=== PATIENT | male | born 1960 | race Caucasian/White ===

== ENCOUNTER 2020-11-07 13:02 | Emergency (ER) | payer BC ==
--- OUTSIDE RECORDS SUMMARY | 2020-11-07 13:09 | XMS REPORT | Continuity of Care Document ---
:1960 Author Organization [facility] t Address Formerly [facility] [employer] [address] Miller [address] [place] [address] Care Team Providers Name Role Phone NICK Attending Clinician Unavailable Mauricio VO Attending Clinician Vignesh MANCERA Attending Clinician Unavailable Tushar VO Attending Clinician Payers Payer Name Policy Type Policy Number Effective Date Expiration Date S keron BCBSTX PPO [id number] 2019 00:00:00 Problems This patient has no known problems. Allergies, Adverse Reactions, Alerts Allergy Allergy Status Severity Reaction(s) Onset Inactive Treating Comm ents Source Name Type Date Date Clinician [facility] te 3-30 Clear 00:00: Patel 00 [facility] oxcarbaz DA Active [facility] epine 3-30 Clear 00:00: Patel 00 [facility] topirama DA Active [facility] te 3- Clear 00:00: Patel 00 [facility] topirama DA Active [facility] te 7- Clear 00:00: Patel 00 [facility] oxcarbaz DA Active [facility] epine 7- Clear 00:00: Patel 00 [facility] Medications This patient has no known medications. Procedures This patient has no known procedures. Encounters Start End Encounter Admission Attending Care Care Encounter Source Date/Time Date/Time Type Type Clinicians Facility Department ID 2020-10-19 Outpatient [facility] [place] [id number] [place] 11:08:00 NO LEONA Heal 2020-10-01 Outpatient [facility] [place] [id number] [place] 17:04:35 NO, LEONA Heal 2020-09-11 Outpatient [facility] [place] [id number] [place] 10:44:32 NO LEONA Heal 2020-10-20 2020-10-20 Outpatient [facility] 7502 [facility] 13:25:00 13:25:00 2020-10-01 2020-10-01 Office [facility] 6410 [id number] 13:49:53 14:49:[address] 350.1.13.58 9.2.7.2.686 [id number] 2020-09-28 2020-09-28 [facility] [id number] 2313 16:29:27 23:59:00 Encounter Raúl Burgos 350.1.13.10 Interior 4.2.7.2.686 [place] [id number] 2020-09-24 2020-09-24 Telephone Vignesh [facility] 6410 [id number] [id number] 00:00:00 00:00:[address] 350.1.13.58 9.2.7.2.686 [id number] 2020-09-10 2020-09-10 Telephone Tushar [facility] 6410 [id number] [id number] 00:00:00 00:00:[address] 350.1.13.58 9.2.7.2.686 [id number] 2020-05-28 2020-05-28 [facility] [id number] [id number] 08:37:56 23:59:00 Encounter Raúl Burgos 350.1.13.10 Interior 4.2.7.2.686 [place] [id number] 2020-05-28 2020-05-28 [facility] 1.2.603.728 [id number] 08:37:03 23:59:00 Encounter Raúl Burgos 350.1.13.10 Jesica 4.2.7.2.686 [place] [id number] Results Test Description Test Time Test Comments Results Result Comments Source SURGICAL PATH SPECIMENS 2020-07-22 14:32:00 Test Item Value Reference Range Interpretation Comme nts SURGICAL RUN DATE: PATH 07/22/20 [place] - LAB PAGE 1 RUN TIME: 1433 SPECIMENS Specimen Inquiry RUN USER: INTERFACE (test code = SURG) PATIENT: ULISSES CH LOC: [facility] U #: [id number] AGE/SX: 59/ M ROOM: [facility] RE07/09/20REG DR: Giovany Rizo : 60 BED: 1 DIS: 07/10/20 STATUS: DIS IN TLOC: SPEC #: [id number] RECD: STATUS: IMELDA WAGNER #: [id number] SANJAY: 07/10/[address]: Giovany Rizo MD ENTERED: 07/21/20 SP TYPE: SURG SPEC OTHR DR: Deven Soto MD, Alfred S M D Thomas, Antony B MDORDERED: GROSS AND MICRO CODES: [id number] - LUNG, NOS COPIES TO : Giovany Rizo MD [address] [id number] Deven Cage MD [address] [place], [place] [address] Raúl Otto MD [address] [place], [place] [address] Víctor Burgos MD [address] [place], [place] [address] [place] [address] PROCEDURES: GROSS AND MICRO (Incomplete) TISSUES: 1. LUNG, NOS - Lung, right upper lobe, bx. 2. LUNG, NOS - Lung, r ight middle lobe, bx. 3. LUNG, NOS - Lung, right lower lobe, bx. 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 CONTINUED ON NEXT PAGE RUN DATE: 07/22/20 [facility] PAGE 2 RUN TIME: 1433 Specimen Inquiry RUN USER: INTERFACE SPEC #: [id number] PATIENT: ULISSES CH #[id number] (Continued) GROSS AND MICROSCOPIC GROSS EXAMINATION: Received in formalin labeled right upper lobe is a 3 x 1.5 cm wedge excision of lung, the pleural surface shows some white-blackmon nodularity at the edge of the pleural surface. Subm itted (A)-(B). Received in formalin labeled right middle lobe is a 3 x 1.1 cm wedge excision of lung tissue submitted (C). Received in formalin labeled right lower lobe is a 2.1 x 1.3 x 0.8 cm wedge excision of lung tissu e submitted (D). MICROSCOPIC EXAMINATION: Sections of the right lung biopsies reveal lung tissue with variable areas of fibrosis and interstitial chronic inflammation. There is black anthracotic pigment present. The alveoli shows emphysematous changes. The case is sent to [facility] via [employer] for evaluation. The internet sales consultant notes follow: "The upper lobe biopsy shows predominantly an airway-cent ered inflammatory pathology with marked peribronchiolar metaplasia, with airway-centered fibro sis. In some areas, there is architectural remodeling of this fibrosis with mucous pooling. In tate tion, there is mild to moderate chronic lymphocytic inflammation present within the fibrotic areas including small lymphoid aggregates and involving the interstitium. A rare multinucleated gi ant cell is identified in the upper lobe. The lower lobe biopsy is relatively unremarkable with the exception of focal chronic bronchiolitis and associated granulomatous inflammation. No birefringent material is seen with polarized light in any of the specimens. Overall, this pat tern of lung pathology is difficult to definitively classify. The predominant air way-centered distribution of the fibroinflammatory changes, the rare foci of giant cells and a gr anulomas and the chronic interstitial inflammation favors a chronic hypersensitivity pne umonitis (CHP). The distribution of disease with apparent sparing of the lower lobe in these biopsies would favor a CHP as well, but requires correlation with the radiologic findings. As yo u know, CHP usually arises from environmental exposures and though no foreign particles were seen, examination of the patient's environmental and occupational exposures is needed. Dr. Lion abel, Thoracic Pathology, has also reviewed this case and concurs with the interpretation of chronic fi brosis interstitial pneumonitis, favor CHP. See outside reports. POST-OP DIAGNOSIS Interstitial lung disease PRE-OP DIAGNOSIS In terstitial lung disease CONTINUED ON NEXT PAGE RUN DATE: 07/22/20 [place] [facility] PAGE 3 RUN TIME: 1433 Specimen Inquiry RUN USER: INTERFACE SPEC #: [id number] PATIENT: ULISSES CH #[id number] (Continued) Signed SIGNATURE ON Joe Schrader Montez DO 07/22/20 1432 END OF REPORT - XR CHEST 1 [id number] 11:39:00 [facility] : 1960 Sex: M FAX: Deven Danielle [phone] Brunson: VIRI St: REG Name: ULISSES CH [facility] : 1960 Age/S: 59/M [address] [place] [address] Bl Unit #: [id number] Loc: [place] [address] Phys: Deven Soto MD Acct: [id number] Dis Date: Status: REG CLI PHONE #: [phone] Exam Date: 07/22/2020 1039 FAX #: [phone] Reason: G89.12, ACUTE POST THRACOTOMY PAIN. J84.9, INTE EXAMS: CPT CODE: [id number] XR CHEST 1 V 55610 Clinical Indication: Acute postthoracotomy pain. Comparison: 07/15/2020. Impression: Chest, 2 views. Cardiomegaly with bibasilaratelectasis or scarring. No pleural effusion or pneumothorax. Prior cervical spinefusion. No acute osseous abnormality. SL: [id number] at 1139 Reported and signed by: Emir Cuellar M.D. CC: Deven Soto MD Technologist: RT Derek(Misbah) Trnscrd Date/Time/By: 07/22/2020 (1139) : By: [email or web address] Orig Print D/T: S: 07/22/2020 (1143) PAGE 1 Signed Report- XR CHEST 2 [id number] 16:29:00 [facility] : 1960 Sex: M FAX: Deven Danielle [phone] Brunson: GC St: REG Name: ULISSES CH [facility] : 1960 Age/S: 59/M [address] [place] [address] Unit #: [id number] Loc: [place] [address] Phys: Deven Soto MD Acct: [id number] Dis Date: Status: REG CLI PHONE #: [phone] Exam Date: 07/15/2020 1447 FAX #: [phone] Reason: J84.9, INTERSTITIAL LUNG DISEASE. G89.12, ACUTE EXAMS: CPT CODE: [id number] XR CHEST 2 V 63569 EXAM: CHEST TWO VIEW HISTORY: 59-ye ar-old male with lung disease COMPARISON: Chest radiograph 07/10/2020 FINDINGS: Streaky opacities again noted in the bilateral lower lungs likely representing subsegmental atelectasis versus scarring. The cardiomediastinal silhouette is stable. Osseous structures are unchanged. Cervical spinal hardware noted. Interval removal of right chest tube. IMPRESSION: 1. Subsegmental atelectasis/scarring in the bilateral lowerlungs. SL: [id number] at 1451 Reported and signed by: Ilia Velázquez M.D. CC: Deven Soto MD Technologist: RT Onesimo(Misbah)(M) Trnscrd Date/Time/By: 07/15/2020 (2813) : By: [email or web address] Orig Print D/T:S: 07/15/2020 (3076) PAGE 1 Signed [id number] 00:59:00 Test Item Value Reference Range Interpretation Comments GLUBED (test code = 116 MG/DL 70-110 H Performe d by certified GLUBED) unloader operator at [facility] - XR CHEST 1 [id number] 08:26:00 [facility] PATELName: ULISSES CH : 1960 Sex: M FAX: Gal Giovany Rizo Mary Ann [phone] Brunson: St: ADM FAX: Paresh Heath SENIOR MEDICAL BILLING SPECIALIST FAX: Raúl Bernard MD [phone] Name: ULISSES CH [facility] [place] : 1960 Age/S: 59/M [address] [place] [address] Unit #: [id number] Loc: G.[address] [place] [address] Phys: Paresh Duran NP Acct: [id number] Dis Date: Status: ADM IN PHONE #: [phone] Exam Date: 07/10/2020 [facility] FAX #: [phone] Reason: S/P Thoracotomy EXAMS: CPT CODE: [id number] XR CHEST 1 V 83001 CHEST RADIOGRAPH ONE VIEW 07/10/2020 AT 0453 HOURS. CLINICAL HISTORY: Postthoracotomy. COMPARISON STUDIES: Chest one view from yesterday at 0920 hours. FINDINGS: One view of the chest was obtained. Decreased lung volumes with persistent scattered atelectasis in the lingula, right middle lobe and both lower lobes. No visible pneumothorax line is seen in the presence of a large bore right-sided chest tube. No sundeep edema or lobar consolidation. Partially imaged anterior cervical spine fusion hardware. No destructive bone lesions. Enlarged cardiac silhouette accountingfor magnification. IMPRESSION: 1. Decreased lung volumes with persistent lingular, right middle lobe and bibasilar platelike atelectasis. 2. No visible pneumothorax in the presence of a right sided chest tube. 3. Enlarged cardiac silhouette. SL: ER-H at 0826 Reported and signedby: Fausto Toro M.D. CC: Giovany Rizo MD; Paresh Duran NP; Yamila Martínez MD Technologist: Sawyer Gongora, RT(R); Kathrine Elizabeth RT(R) Trnscrd Date/Time/By: 07/10/2020 (825) : By: [email or web address] Orig Print D/T: S: 07/10/2020 (828) PAGE 1 Signed ReportBASIC METABOLIC [id number] 03:48:00 Test Item Value Reference Range Interpretation Comments SODIUM (test code = NA) 136 mEq/L 134-147 N POTASSIUM (test code = 4.0 mEq/L 3.4-5.0 N K) CHLORIDE (test code = 103 mEq/L 100-108 N CL) CARBON DIOXIDE (test 27 mEq/l 21-33 N code = CO2) ANION GAP (test code = 10 0-20 N GAP) GLUCOSE (test code = 123 mg/dL 70-110 H GLU) BLOOD UREA NITROGEN 12 mg/dL 7-18 N (test code = BUN) GLOMERULAR FILTRATION 76.5 90-95 L Units of measure = RATE (test code = GFR) ml/mi n/1.73 m2 CREATININE (test code = 1.0 mg/dL 0.6-1.3 N CREAT) CALCIUM (test code = 8.7 mg/dL 8.0-10.5 N CA) CBC W/AUTO [id number] 03:38:00 Test Item Value Reference Range Interpretation Comments WHITE BLOOD CELL (test code = 11.7 x10 3/uL 4.5-11.0 H WBC) RED BLOOD CELL (test code = 4.45 x10 6/uL 4.00-5.60 N RBC) HEMOGLOBIN (test code = HGB) 12.3 g/dL 12.5-16.9 L HEMATOCRIT (test code = HCT) 39.8 % 37.5-50.7 N MEAN CELL VOLUME (test code = 89.4 fL 81.0-99.0 N MCV) MEAN CELL HGB (test code = MCH) 27.6 pg 27.0-33.0 N MEAN CELL HGB CONCETRATION 30.9 g/dL 33.0-37.0 L (test code = MCHC) RED CELL DISTRIBUTION WIDTH CV 15.3 % 11.5-14.5 H (test code = RDW) RED CELL DISTRIBUTION WIDTH SD 50.6 fL 37.0-54.0 N (test code = RDW-SD) PLATELET COUNT (test code = 247 x10 3/uL 150-400 N PLT) MEAN PLATELET VOLUME (test code 9.6 fL 7.0-9.0 H = MPV) NEUTROPHIL % (test code = NT%) 78.2 % 56.0-77.0 H IMMATURE GRANULOCYTE % (test 0.4 % 0.0-2.0 N code = IG%) LYMPHOCYTE % (test code = LY%) 12.2 % 14.0-32.0 L MONOCYTE % (test code = MO%) 8.9 % 4.8-9.0 N EOSINOPHIL % (test code = EO%) 0.1 % 0.3-3.7 L BASOPHIL % (test code = BA%) 0.2 % 0.0-2.0 N NUCLEATED RBC % (test code = 0.0 % 0-0 N NRBC%) NEUTROPHIL # (test code = NT#) 9.12 x10 3/uL 2.0-7.6 H IMMATURE GRANULOCYTE # (test 0.05 x10 3/uL 0.00-0.03 H code = IG#) LYMPHOCYTE # (test code = LY#) 1.42 x10 3/uL 1.0-3.8 N MONOCYTE # (test code = MO#) 1.04 x10 3/uL 0.1-0.8 H EOSINOPHIL # (test code = EO#) 0.01 x10 3/uL 0.0-0.2 N BASOPHIL # (test code = BA#) 0.02 x10 3/uL 0.0-0.2 N NUCLEATED RBC # (test code = 0.00 x10 3/uL 0.0-0.1 N NRBC#) MANUAL DIFF REQUIRED (test code NO = MDIFF) [id number] 20:14:00 Test Item Value Reference Range Interpretation Comments GLUBED (test code = 117 MG/DL 70-110 H Performe d by certified GLUBED) unloader operator at [facility] BASIC METABOLIC [id number] 10:43:00 Test Item Value Reference Range Interpretation Comments SODIUM (test code = NA) 141 mEq/L 134-147 N POTASSIUM (test code = 4.1 mEq/L 3.4-5.0 N K) CHLORIDE (test code = 110 mEq/L 100-108 H CL) CARBON DIOXIDE (test 24 mEq/l 21-33 N code = CO2) ANION GAP (test code = 11 0-20 N GAP) GLUCOSE (test code = 132 mg/dL 70-110 H GLU) BLOOD UREA NITROGEN 13 mg/dL 7-18 N (test code = BUN) GLOMERULAR FILTRATION 76.5 90-95 L Units of measure = RATE (test code = GFR) ml/mi n/1.73 m2 CREATININE (test code = 1.0 mg/dL 0.6-1.3 N CREAT) CALCIUM (test code = 8.4 mg/dL 8.0-10.5 N CA) HGB [id number] 10:07:00 Test Item Value Reference Range Interpretation Comments HEMOGLOBIN (test code = HGB) 13.0 g/dL 12.5-16.9 N HEMATOCRIT (test code = HCT) 41.9 % 37.5-50.7 N COMMENTS: On admission- XR CHEST 1 [id number] 10:04:00 [facility] : 1960 Sex: M FAX: Deven Danielle [phone] Brunson: St: [facility] FAX: Paresh Heath NP FAX: Raúl Bernard MD [phone] Name: ULISSES CH [facility] : 1960 Age/S: 59/M [address] [place] [address] Unit #: [id number] Loc: [place] [address] Phys: Paresh Duran NP Acct: [id number] Dis Date: Status: ADM IN PHONE #: [phone] Exam Date: 07/09/2020 0959 FAX #: [phone] Reason: S/P Thoracotomy EXAMS: CPT CODE: [id number] XR CHEST 1 V 86666 EXAM: CHEST SINGLE VIEW HISTORY: 59-year-old male status post thoracotomy COMPARISON: Chest radiograph 07/07/2020, CT chest 07/07/2020 FINDINGS: Bibasilar atelectatic changes. No definite pneumothorax identified. The cardiomediastinal silhouette is stable. Aortic calcifications. Osseous structures are unchanged. Cervical spinal hardware noted. Old healed left clavicle fracture. Interval placement of right-sided chest tube. IMPRESSION: 1. Interval placement of right-sided chest tube. No definite pneumothorax identified. 2. Bibasilar atelectatic changes. SL: [id number] at 1004 Reported and signed by: Paxton Hunt CC: Deven Soto MD; Paresh Duran NP; Raúl Martínez MD Technologist: RT Tati(Misbah) Trnscrd Date/Time/By: 07/09/2020 (1004) : By: [email or web address] Orig Print D/T: S: 07/09/2020 (1632) PAGE 1 [facility] [id number] 09:50:00 Test Item Value Reference Range Interpretation Comments POC ARTERIAL BLOOD GAS PH (test 7.285 7.35-7.45 LL code = POCPHA) POC ARTERIAL BLOOD GAS PCO2 56.1 mmHg 35.0-45 HH (test code = [id number]) POC TCO2 ARTERIAL (test code = 28.4 POCTCO2) POC ARTERIAL BLOOD GAS PO2 (test 80.3 mmHg 80-100.0 N code = SKSCV1C) POC HCO3 ARTERIAL (test code = 26.7 MMOL/L 22.0-26.0 H [id number]) POC BASE EXCESS (test code = 0.0 MMOL/L -4.0-4.0 N POCBEA) POC O2 SATURATION (test code = 93.9 % 90-100 N POCO2S) FIO2 (test code = FIO2A) 50 % PaO2/FiO2 (test code = WEE1IQY7) 160.60 mm/Hg ABG DELIVERY (test code = LES) PRB ABG SITE (test code = SITEA) Art Line Novel Coronavirus 2018 [id number] 05:57:00 Test Item Value Reference Range Interpretation Comments Novel Coronavirus Negative Negative Positive r esults are 2019 Inhouse (test indicativ e of the presence code = COVNONPUI) ofSARS-CoV -2 RNA, clinical correlation wit h patient historyand othe r diagnostic info rmation is necessary to determinepatien t infection status. Positiv e results do not rule out bacterial infection or co -infection with other viru ses. Negative result s do not preclude SARS-C oV-2 infection andsh ould not be used as the diane e basis for patient managementdecis ions. Negative result s must be combined with otherclinical observations, p atient history, and epidemiological information . Detection of SARS-CoV-2 RNA may be affe cted bysample collec tion methods, storag e conditions, and /or stageof infection. Estrella l RNA mutations, vacc inations, antiviraltherap eutics, antibiotics, chemotherapeuti c orimmunosuppres elaine drugs have not been e valuated for effectson d etection. Results are for the identification of SARS-CoV-2 RNA usingthe Sandoval M2000 Sy stem under the FDA Emergen cy UseAuthorizatio n. The testing is perf ormed by nathaniel chavez in the procedures for the Sandoval M2000 molecular diagnostic SARS-CoV-2 minerva maurer in vitro. - CT CHEST W/O [id number] 16:51:00 [facility] : 1960 Sex: M Name: ULISSES CH [facility] : 10/[birth year] Age/S: 59 / M [address] [place] [address] Blvd Unit #: [id number] Loc: [place] [address] Phys: Deven Soto MD Acct: [id number] Dis Date: Status: PRE INPHONE #: [phone] Exam Date: 07/07/2020 1530 FAX #: [phone] Re ason: INTERSTITIAL LUNG DISEASE. EXAMS: CPT CODE: [id number] CT CHEST W/O CONTRAST 13055 EXAM: CT CHEST WITHOUT CONTRAST DATE: 07/07/2020 2:55 PM : 1960; Age: 59 years y/o Male INDICATION: Preop, INTERSTITIAL LUNG DISEASE. COMPARISON: None TECHNIQUE: Volumetric CT of the chest is acquired without contrast. Axial, coronal and sagittal images are provided. IV contrast: None. DLP: 349 mGy-cm CT imaging performed at this location utilizes radiation dose optimization techniques which include oneor more of the following: -Automated exposure control -Adjustment of the mA and/or kV according to patient size - Use of iterative reconstruction technique FINDINGS: Lymph Nodes: There is no mediastinal or hilar lymphadenopathy. No axillary lymphadenopathy. Heart, and aorta: Mild cardiomegaly. Minimal coronary arteries calcification. Aneurysmal ascending thoracic aorta measuring 4.4 cm. Minimal atherosclerotic calcification involving the aortic arch and distal descending thoracic aorta. Sunitha ngs: No pleural effusion is seen. Minimal pulmonary emphysema is seen. Scattered minimal to mild subpleural atelectasis or scarring is seen. No consolidation. Minimal bronchiectasis. Upper abdomen: Scattered low- attenuation foci are seen within the liver with larger foci measuring water density, representing simple cysts. Smaller foci are too small to accurately characterize. Few tiny nonobstructing stones in visualized bilateral kidneys. Soft tissues: Normal. Bones: No acute abnormality. Age-related degenerative findings. ACDF partially seen. IMPRESSION: PAGE 1 Signed Report (CONTINUED) Name: ULISSES CH [facility] : 1960 Age/S: 59 / M [address] [place] [address] Blvd Unit #:[id number] Loc: [place] [address] Phys: Deven Soto MD Acct: [id number] Dis Date: Status: PRE IN PHONE #: [phone] Exam Date: 07/07/2020 1530 FAX #: [phone] Reason: INTERSTITIAL LUNG DISEASE. EXAMS: CPT CODE: [id number] CT CHEST W/O CONTRAST 99462 <Continued> 1. Aneurysmal ascending thoracic aorta measuring 4.4 cm. 2. Minimal atherosclerotic calcification involving the aortic arch and distal descending thoracic aorta. 3. Mild cardiomegaly with coronary artery disease. 4. Interstitial lung disease without consolidation. 5. Bilateral nephrolithiasispartially seen. SL: [id number] at 1651 Reported and signed by: Catherine Chavez D.O. CC: Deven Soto MD; Raúl Martínez MD Technologist:Chivo Martinez, RT(R)(CT) CTDI: DLP: Trnscb Date/Time:07/07/2020 (1650) [email or web address] Orig Print D/T: S: 07/07/2020 (536) PAGE 2 Signed Report- DUP EXTRACRANIAL [id number] 16:03:00 [facility] ULISSES CH : 1960 Sex: M Name: ULISSES CH [facility] [place] : [birth year] Age/S: 59 / M [address] [place] [address] Blvd Unit #: [id number] Loc: [place] [address] Phys: Deven Soto MD Acct: [id number] Dis Date: Status: PRE INPHONE #: [phone] Exam Date: 07/07/2020 1545 FAX #: [phone] Re ason: INTERSTITIAL LUNG DISEASE. EXAMS: CPT CODE: [id number] DUP EXTRACRANIAL HARSHAD [address] CAROTID ULTRASOUND. INDICATION: Interstitial lung disease. Lung mass. Preop VATS. COMPARISON: None. TECHNIQUE: Jensen-scale, color Doppler and spectral Doppler of the carotid arteries was performed. Any reported ICA stenoses indirectly referencethe distal internal carotid diameter as the denominator for stenosis measurement, utilizing consensus panel criteria. RIGHT: Mild plaque formation is identified. ICA PSV: 62 cm/sec CCA PSV: 82 cm/sec ICA/CCA ratio: 0.8 Vertebral flow is antegrade.LEFT: Mild plaque formation is identified. ICA PSV: 77 cm/sec CCA PSV: 69 cm/sec ICA/CCA ratio: 1.1 Vertebral flow is antegrade. IMPRESSION: 1. RIGHT: Carotid artery stenosis estimated at less than 50%. 2. LEFT: Carotid artery stenosis estimated at less than 50%. End Impression Consensus panel Doppler US criteria for diagnosis of ICA stenosis. Stenosis (%) ICA PSV (cm/sec) ICA/CCA ratio <50 <125 <2.0 50-69 125-230 2.0-4.0 >70 but less than >230 >4.0 near occlusion Near occlusion High, low, or undetectable Variable SL: SG-H PAGE 1 Signed Report (CONTINUED) Name: ULISSES CH [facility] : 1960 Age/S: 59 / M [address] [place] [address] Unit #: [id number] Loc: [place] [address] Phys: Deven Soto MD Acct: [id number] Dis Date: Status: PRE IN PHONE #: [phone] Exam Date: 07/07/2020 1545 FAX #: [phone] Reason: INTERSTITIAL LUNG DISEASE. EXAMS: CPT CODE: [id number] DUP EXTRACRANIAL HARSHAD [address]138 <Continued> at 1603 Reported and signed by: Devon Ibarra M.D. CC: Deven Soto MD; Raúl Martínez MD Technologist: Althea Puente Trngab Date/Time: 07/07/2020 (1603) [email or web address] Orig Print D/T: S: 07/07/2020 (1607) Probe: PAGE 2 Signed Report- XR CHEST 2 [id number] 14:09:00[facility] : 1960 Sex: M FAX: Deven Danielle [phone] Brunson: St: PRE FAX: Raúl aHys MD [phone] Name: ULISSES CH [facility] : 1960 Age/S: 59/M [address] [place] [address] Unit #: [id number] Loc: [place] [address] Phys: Deven Soto MD Acct: [id number] Dis Date: Status: PRE IN PHONE #: [phone] Exam Date: 07/07/2020 1357 FAX #: [phone] Reason: THORACOTOMY EXAMS: CPT CODE: [id number] XR CHEST 2 V 36955 CLINICAL HISTORY: THORACOTOMY COMPARISON: NONE PA and lateral films of the chest demonstrate that heart size is normal. Tortuosity of thoracic aorta is present. Lung muniz demonstrate no evidence of pneumonia or congestive failure. Metallic hardware in cervical region related to spinal fusion surgery is noted. IMPRESSION: No evidence of pneumonia or congestive failure is seen. Electronically Signed by Paxton Garcia on 0 07/07/2020 at 1404 Reported and signed by: Asim Garcia M.D. CC: Deven Soto MD; Raúl Martínez MD Technologist: Kevin Nixon RT(R) Trnscrd Date/Time/By: 07/07/2020 (0389) : By: Daniela Orig Print D/T: S: 07/07/2020 (1908) PAGE 1 Signed ReportBASIC METABOLIC [id number] 13:30:00 Test Item Value Reference Range Interpretation Comments SODIUM (test code = NA) 142 mEq/L 134-147 N POTASSIUM (test code = 4.1 mEq/L 3.4-5.0 N K) CHLORIDE (test code = 107 mEq/L 100-108 N CL) CARBON DIOXIDE (test 30 mEq/l 21-33 N code = CO2) ANION GAP (test code = 9 0-20 N GAP) GLUCOSE (test code = 84 mg/dL 70-110 N GLU) BLOOD UREA NITROGEN 15 mg/dL 7-18 N (test code = BUN) GLOMERULAR FILTRATION 68.5 90-95 L Units of measure = RATE (test code = GFR) ml/mi n/1.73 m2 CREATININE (test code = 1.1 mg/dL 0.6-1.3 N CREAT) CALCIUM (test code = 8.8 mg/dL 8.0-10.5 N CA) URINALYSIS [id number] 13:15:00 Test Item Value Reference Range Interpretation Comments UA COLOR (test code = COLU) YELLOW YEL/STRAW UA APPEARANCE (test code = CLEAR CLEAR APPU) UA GLUCOSE DIPSTICK (test code NEGATIVE NEGATIVE = DGLUU) UA BILIRUBIN DIPSTICK (test NEGATIVE NEGATIVE code = BILU) UA KETONE DIPSTICK (test code NEGATIVE NEGATIVE = KETU) UA SPECIFIC GRAVITY (test code 1.018 1.005-1.030 N = SGU) UA BLOOD DIPSTICK (test code = NEGATIVE NEGATIVE QUANG) UA PH DIPSTICK (test code = 6.0 5.0-7.0 N RIVER) UA PROTEIN DIPSTICK (test code NEGATIVE NEGATIVE = PROU) UA UROBILINIOGEN DIPSTICK 0.2 mg/dL 0.2-1.0 (test code = URO) UA NITRITE DIPSTICK (test code NEGATIVE NEGATIVE = GENIE) UA LEUKOCYTE ESTERASE DIPSTICK NEGATIVE NEGATIVE (test code = LEUU) UA RBC (test code = RBCU) 0-3 RBC/HPF 0-3 UA WBC NO REFLEX (test code = 0-3 WBC/HPF 0-3 WBCUCL) UA BACTERIA (test code = BACU) NONE SEEN /HPF NONE SEEN UA SQUAMOUS CELLS (test code = 0-5 /HPF NONE SEEN SQU) UA MUCUS (test code = MUCU) TRACE /LPF NONE SEEN HGBA1C%2020-07-07 13:15:00 Test Item Value Reference Range Interpretation Comments HGBA1C% (test code = HGBA1C%) 5.2 %A1C 4.8-6.0 N PROTHROMBIN [id number] 13:12:00 Test Item Value Reference Range Interpretation Comments PROTHROMBIN TIME 12.6 SECONDS 9.3-12.9 N PATIENT (test code = PTP) INTERNATIONAL NORMAL 1.2 0.8-1.2 N TARGET RATIO (test code = INR BY IN DICATION INR) Indication INR1. Prophyl axis of venous thrombos is 2.0 - 3. 0 (orthopedic mirna angela), Prophylaxis of venous thrombos is (other than hig h-risk surgery), Yolanda tment of Deep Vein Thrombosis/Pulm onary Embolism, Preve ntion of systemic emb olism - Tissue heart va lves, Acute Myocardia l Infarction (to prevent systemic embo lism), Valvular heart disease, Atri al Fibrillation, Bileaflet mecha nical valve in aortic position.2. Mec hanical prosthetic valv es (high risk), 2.5 - 3.5 Presence of Lupus Anticoagu lant or Antiphospholi pid Antibodies, Pre vention of systemic e mbolism - Acute Myocard ial Infarction (t o prevent recurre nt infarct). THROMBOPLASTIN TIME [id number] 13:12:00 Test Item Value Reference Range Interpretation Comments THROMBOPLASTIN TIME PARTIAL (test Seconds 25.0-39.5 code = PTT) PROTHROMBIN [id number] 13:12:00 Test Item Value Reference Range Interpretation Comments PROTHROMBIN TIME 12.6 SECONDS 9.3-12.9 N PATIENT (test code = PTP) INTERNATIONAL NORMAL 1.2 0.8-1.2 N TARGET RATIO (test code = INR BY IN DICATION INR) Indication INR1. Prophyl axis of venous thrombos is 2.0 - 3. 0 (orthopedic mirna angela), Prophylaxis of venous thrombos is (other than hig h-risk surgery), Yolanda tment of Deep Vein Thrombosis/Pulm onary Embolism, Preve ntion of systemic emb olism - Tissue heart va lves, Acute Myocardia l Infarction (to prevent systemic embo lism), Valvular heart disease, Atri al Fibrillation, Bileaflet mecha nical valve in aortic position.2. Mec hanical prosthetic valv es (high risk), 2.5 - 3.5 Presence of Lupus Anticoagu lant or Antiphospholi pid Antibodies, Pre vention of systemic e mbolism - Acute Myocard ial Infarction (t o prevent recurre nt infarct). THROMBOPLASTIN TIME [id number] 13:12:00 Test Item Value Reference Range Interpretation Comments THROMBOPLASTIN TIME 34.3 Seconds 25.0-39.5 N Ther apeutic PARTIAL (test code = Range: 50.4 - 88.3 PTT) Seconds Effective 07/24/2018 CBC W/AUTO [id number] 13:03:00 Test Item Value Reference Range Interpretation Comments WHITE BLOOD CELL (test code = x10 3/uL 4.5-11.0 WBC) RED BLOOD CELL (test code = RBC) x10 6/uL 4.00-5.60 HEMOGLOBIN (test code = HGB) 13.4 g/dL 12.5-16.9 N HEMATOCRIT (test code = HCT) 43.9 % 37.5-50.7 N MEAN CELL VOLUME (test code = fL 81.0-99.0 MCV) MEAN CELL HGB (test code = MCH) pg 27.0-33.0 MEAN CELL HGB CONCETRATION (test g/dL 33.0-37.0 code = MCHC) RED CELL DISTRIBUTION WIDTH CV % 11.5-14.5 (test code = RDW) PLATELET COUNT (test code = PLT) 259 x10 3/uL 150-400 N NEUTROPHIL % (test code = NT%) % 56.0-77.0 LYMPHOCYTE % (test code = LY%) % 14.0-32.0 NEUTROPHIL # (test code = NT#) x10 3/uL 2.0-7.6 LYMPHOCYTE # (test code = LY#) x10 3/uL 1.0-3.8 MANUAL DIFF REQUIRED (test code = MDIFF) CBC W/AUTO [id number] 13:03:00 Test Item Value Reference Range Interpretation Comments WHITE BLOOD CELL (test code = 5.4 x10 3/uL 4.5-11.0 N WBC) RED BLOOD CELL (test code = 4.87 x10 6/uL 4.00-5.60 N RBC) HEMOGLOBIN (test code = HGB) 13.4 g/dL 12.5-16.9 N HEMATOCRIT (test code = HCT) 43.9 % 37.5-50.7 N MEAN CELL VOLUME (test code = 90.1 fL 81.0-99.0 N MCV) MEAN CELL HGB (test code = MCH) 27.5 pg 27.0-33.0 N MEAN CELL HGB CONCETRATION 30.5 g/dL 33.0-37.0 L (test code = MCHC) RED CELL DISTRIBUTION WIDTH CV 15.4 % 11.5-14.5 H (test code = RDW) RED CELL DISTRIBUTION WIDTH SD 51.4 fL 37.0-54.0 N (test code = RDW-SD) PLATELET COUNT (test code = 259 x10 3/uL 150-400 N PLT) MEAN PLATELET VOLUME (test code 10.3 fL 7.0-9.0 H = MPV) NEUTROPHIL % (test code = NT%) 48.9 % 56.0-77.0 L IMMATURE GRANULOCYTE % (test 0.2 % 0.0-2.0 N code = IG%) LYMPHOCYTE % (test code = LY%) 33.6 % 14.0-32.0 H MONOCYTE % (test code = MO%) 13.0 % 4.8-9.0 H EOSINOPHIL % (test code = EO%) 3.2 % 0.3-3.7 N BASOPHIL % (test code = BA%) 1.1 % 0.0-2.0 N NUCLEATED RBC % (test code = 0.0 % 0-0 N NRBC%) NEUTROPHIL # (test code = NT#) 2.64 x10 3/uL 2.0-7.6 N IMMATURE GRANULOCYTE # (test 0.01 x10 3/uL 0.00-0.03 N code = IG#) LYMPHOCYTE # (test code = LY#) 1.81 x10 3/uL 1.0-3.8 N MONOCYTE # (test code = MO#) 0.70 x10 3/uL 0.1-0.8 N EOSINOPHIL # (test code = EO#) 0.17 x10 3/uL 0.0-0.2 N BASOPHIL # (test code = BA#) 0.06 x10 3/uL 0.0-0.2 N NUCLEATED RBC # (test code = 0.00 x10 3/uL 0.0-0.1 N NRBC#) MANUAL DIFF REQUIRED (test code NO = MDIFF) BODY FLUID CELL [id number] 10:56:00 Test Item Value Reference Interpretation Comments Range FLUID SOURCE BRONCHIAL Reference inter vals and other (test code = LAVAGE method SOURCEFL) performancespec ifications may be unavailable for certain body fluids.The test results must be integra rogelio into the clinicalcontext for interpretation. FLUID COLOR Colorless (test code = COLFL) FLUID CLEAR APPEARANCE (test code = APPFL) FLUID WBC (test 20 MM3 0-500 N code = WBCFL) FLUID RBC (test 80 MM3 See_Comment N [Automated message] The code = RBCFL) system which g enerated this result transmit rogelio reference range: <=100,00 0. The reference range was not used to interpret th is result as normal/abnormal . FLUID POLY 19 % (test code = POLYFL) FLUID 63 % LYMPHOCYTE (test code = LYMPHFL) FLUID MONOCYTE 7 % (test code = MONOFL) FLUID 1 % EOSINOPHIL (test code = EOSFL) FLUID BASOPHIL 1 % (test code = BASOFL) FLUID 9 % MACROPHAGE (test code = MACFL) LAVAGEBASIC METABOLIC [id number] 16:12:00 Test Item Value Reference Range Interpretation Comments SODIUM (test code = NA) 139 mEq/L 134-147 N POTASSIUM (test code = 4.2 mEq/L 3.4-5.0 N K) CHLORIDE (test code = 108 mEq/L 100-108 N CL) CARBON DIOXIDE (test 25 mEq/l 21-33 N code = CO2) ANION GAP (test code = 10 0-20 N GAP) GLUCOSE (test code = 96 mg/dL 70-110 N GLU) BLOOD UREA NITROGEN 20 mg/dL 7-18 H (test code = BUN) GLOMERULAR FILTRATION 68.5 90-95 L Units of measure = RATE (test code = GFR) ml/mi n/1.73 m2 CREATININE (test code = 1.1 mg/dL 0.6-1.3 N CREAT) CALCIUM (test code = 9.0 mg/dL 8.0-10.5 N CA) CBC W/AUTO [id number] 16:07:00 Test Item Value Reference Range Interpretation Comments WHITE BLOOD CELL (test code = 6.7 x10 3/uL 4.5-11.0 N WBC) RED BLOOD CELL (test code = 4.71 x10 6/uL 4.00-5.60 N RBC) HEMOGLOBIN (test code = HGB) 12.9 g/dL 12.5-16.9 N HEMATOCRIT (test code = HCT) 41.4 % 37.5-50.7 N MEAN CELL VOLUME (test code = 87.9 fL 81.0-99.0 N MCV) MEAN CELL HGB (test code = MCH) 27.4 pg 27.0-33.0 N MEAN CELL HGB CONCETRATION 31.2 g/dL 33.0-37.0 L (test code = MCHC) RED CELL DISTRIBUTION WIDTH CV 15.6 % 11.5-14.5 H (test code = RDW) RED CELL DISTRIBUTION WIDTH SD 50.3 fL 37.0-54.0 N (test code = RDW-SD) PLATELET COUNT (test code = 246 x10 3/uL 150-400 N PLT) MEAN PLATELET VOLUME (test code 9.8 fL 7.0-9.0 H = MPV) NEUTROPHIL % (test code = NT%) 54.4 % 56.0-77.0 L IMMATURE GRANULOCYTE % (test 0.3 % 0.0-2.0 N code = IG%) LYMPHOCYTE % (test code = LY%) 31.8 % 14.0-32.0 N MONOCYTE % (test code = MO%) 10.3 % 4.8-9.0 H EOSINOPHIL % (test code = EO%) 2.2 % 0.3-3.7 N BASOPHIL % (test code = BA%) 1.0 % 0.0-2.0 N NUCLEATED RBC % (test code = 0.0 % 0-0 N NRBC%) NEUTROPHIL # (test code = NT#) 3.62 x10 3/uL 2.0-7.6 N IMMATURE GRANULOCYTE # (test 0.02 x10 3/uL 0.00-0.03 N code = IG#) LYMPHOCYTE # (test code = LY#) 2.12 x10 3/uL 1.0-3.8 N MONOCYTE # (test code = MO#) 0.69 x10 3/uL 0.1-0.8 N EOSINOPHIL # (test code = EO#) 0.15 x10 3/uL 0.0-0.2 N BASOPHIL # (test code = BA#) 0.07 x10 3/uL 0.0-0.2 N NUCLEATED RBC # (test code = 0.00 x10 3/uL 0.0-0.1 N NRBC#) MANUAL DIFF REQUIRED (test code NO = MDIFF) CBC W/AUTO [id number] 16:01:00 Test Item Value Reference Range Interpretation Comments WHITE BLOOD CELL (test code = x10 3/uL 4.5-11.0 WBC) RED BLOOD CELL (test code = RBC) x10 6/uL 4.00-5.60 HEMOGLOBIN (test code = HGB) 12.9 g/dL 12.5-16.9 N HEMATOCRIT (test code = HCT) 41.4 % 37.5-50.7 N MEAN CELL VOLUME (test code = fL 81.0-99.0 MCV) MEAN CELL HGB (test code = MCH) pg 27.0-33.0 MEAN CELL HGB CONCETRATION (test g/dL 33.0-37.0 code = MCHC) RED CELL DISTRIBUTION WIDTH CV % 11.5-14.5 (test code = RDW) PLATELET COUNT (test code = PLT) 246 x10 3/uL 150-400 N NEUTROPHIL % (test code = NT%) % 56.0-77.0 LYMPHOCYTE % (test code = LY%) % 14.0-32.0 NEUTROPHIL # (test code = NT#) x10 3/uL 2.0-7.6 LYMPHOCYTE # (test code = LY#) x10 3/uL 1.0-3.8 MANUAL DIFF REQUIRED (test code = MDIFF) NM BONE SPECT SCANCLINICAL INDICATION: dx: m50.30, cervical disc degeneration, chronic neck painMODALITY: [employer] dual head gamma cameraTECHNIQUE: 25 mCi Tc 99m MDP are injected IV. After a suitable time delay,whole body imaging images were obtained. SPECT imaging of the cervical spine is performed with computer and physician-assisted 2-D and 3-D reconstruction.FINDINGS:COMPARISON: Cervical spine pfskziprj22/01/2018:Anterior discectomy and fusion are demonstrated C5-C7. Hardware remains in place at the C6-7 level. Disc spaces otherwise preserved. No subluxation or evidence of dynamic instability. Mild ca rotid calcification noted on the right.Symmetric bilateral renal function is observed.Mild to moderate arthritic changes are noted at the acromioclavicular and glenohumeral joints bilaterally. Mild arthritic uptake is noted within sternoclavicular and hip joints bilaterally.SPECT imaging of the cervical spine demonstrates no significant intervertebral disc uptake to be present. There is mild to moderate localization present within the right C4-5 versus C5-6 facet articulation.IMPRESSION:See commentsabove.PQRS 147: [id number]
[2020-11-07 14:02] LABS: Absolute Lymphocytes (CBC) 1.4 K/uL (0.7-4.9); Basophils % 0.9 % (0-1.3); Hematocrit 44.8 % (39.6-49.0); Lymphocytes % 13.5 % (15.3-44.8); MPV 7.6 fL (7.6-11.3); RBC Red Blood Cell Count 5.11 M/uL (4.33-5.43)
--- NOTE | 2020-11-07 14:20 | RAD REPORT ---
EXAM DESCRIPTION: CT - Chest For Pe Angio - 11/07/2020 2:10 pm CLINICAL HISTORY: CHEST PAIN COMPARISON: CTANGIO CHEST FOR PE dated 05/15/2009 FINDINGS: Chest Wall: No suspicious thyroid nodules or pathologic lymphadenopathy. Lungs: No acute abnormality. Pleura: No significant effusions or pneumothorax. Mediastinum/satinder: No pathologic lymphadenopathy. Pulmonary arteries/Aorta: No filling defect identified. No aortic aneurysm. Limited evaluation of the subsegmental pulmonary arteries. Heart: No significant pericardial effusion. Normal heart size. Upper abdomen: No acute abnormality. Multiple low density liver lesions which are incompletely charac terized but statistically benign. Bones: No acute abnormality. ACDF in the cervical spine. IMPRESSION: Negative for pulmonary embolism. No acute findings within the chest.
[2020-11-07 14:22] LABS: Protime INR 1.03
--- NOTE | 2020-11-07 14:23 | RAD REPORT ---
EXAM DESCRIPTION: RAD - Chest Single View - 11/07/2020 2:04 pm CLINICAL HISTORY: Chest pain;Cough COMPARISON: Chest Pa And Lat (2 Views) dated 11/22/2019; Abdomen 1 View (KUB) dated 12/29/2016; CHEST PA AND LAT 2 VIEW dated 07/14/2014; CHEST PA AND LAT 2 VIEW dated 10/21/2011; Chest For Pe Angio dated FINDINGS: No evidence of edema or pneumonia. The heart size is within normal limits.No acute osseous abnormality. No significant pleural effusions or pneumothorax. ACDF in the cervical spine. IMPRESSION: No acute cardiopulmonary disease. Reference subsequent chest CT.
[2020-11-07 14:36] LABS: BUN Blood Urea Nitrogen 21 mg/dL (7-18); Bicarbonate 26 mmol/L (21-32); Glucose Level 98 mg/dL (74-106); NT PRO-BNP 10 pg/mL (<125); Potassium 3.7 mmol/L (3.5-5.1); Sodium Level 140 mmol/L (136-145); Troponin (Emerg Dept Use Only) < 0.02 ng/mL (0.0-0.045)
[2020-11-07] MEDS ORDERED: dexAMETHasone 10 MG/ML VIAL ONE (15:15)
[2020-11-07] MEDS ORDERED: ONDANSETRON 4 MG/2 ML VIAL ONE (15:15)
--- NOTE | 2020-11-07 16:41 | EDPHYS ---
Physician Documentation [facility] Name: Kane Sanchez Age: 60 yrs Sex: Male : 1960 Arrival Date: 11/07/2020 Time: 13:08 Bed 26 Private MD: ED Physician Carlos Pinto HPI: 11/07 13:38 This 60 yrs old Male presents to ER via Ambulatory with complaints of rn Breathing Difficulty, Chest Pain. 13:38 The patient has shortness of breath. rn 13:40 The patient or guardian reports chest pain that is located primarily in the right rn breast. Onset: yesterday. The pain does not radiate. The chest pain is described as sharp, stabbing. Duration: The patient or guardian reports multiple episodes, that are intermittent. Modifying factors: The symptoms are alleviated by nothing. the symptoms are aggravated by cough, deep breath. Severity of pain: At its worst the pain was moderate in the emergency department the pain is unchanged. The patient has experienced similar episodes in the past. The patient has not recently seen a physician. Patient reports right-sided sharp, stabbing chest pain, worse since yesterday, mild cough with exposure to RSV last week. No blunt trauma to chest. No fever. Seen by his wash tank tender a few days ago, prescribed antibiotics. Has chronic hypersensitivity pneumonitis, but this feels more painful than usual. Is undergoing a taper of his prednisone. Positive for recent trip to [facility], but flew, no driving, no history of DVT or PE. Denies hemoptysis. Worse with cough and deep inspiration.. Historical: - Allergies: 13:15 Topamax; ll1 - PMHx: 13:15 chronic hypersensitivity pneumonitis; Kidney stone; hiatal hernia; ll1 - PSHx: 13:15 multiple neck SX; lung biopsy 07/09/20; ll1 - Immunization history:: Client reports receiving the 2nd dose of the Covid vaccine, Flu vaccine is up to date. - Social history:: Smoking status: Patient denies any tobacco usage or history of. - Family history:: not pertinent. - Hospitalizations: : No recent hospitalization is reported. ROS: 13:40 Constitutional: Negative for fever, chills, and weight loss, Eyes: Negative for injury, rn pain, redness, and discharge, Neck: Negative for injury, pain, and swelling, Cardiovascular: Negative for chest pain, palpitations, and edema, Respiratory: Negative for wheezing Abdomen/GI: Negative for abdominal pain, nausea, vomiting, diarrhea, and constipation, Back: Negative for injury and pain, MS/Extremity: Negative for injury and deformity, Skin: Negative for injury, rash, and discoloration, Neuro: Negative for headache, weakness, numbness, tingling, and seizure. 13:40 All other systems are negative. rn Exam: 13:40 Constitutional: This is a well developed, well nourished patient who is awake, alert, rn appears uncomfortable. Head/Face: Normocephalic, atraumatic. Eyes: Periorbital areas with no swelling, redness, or edema. Cardiovascular: Tachycardic, regular. No pulse deficits Respiratory: Mild tachypnea, with splinting on deep inspiration Abdomen/GI: Soft, non-tender Skin: Warm, dry MS/ Extremity: Pulses equal, no cyanosis. Neuro: Awake and alert, GCS 15, oriented to person, place, time, and situation. 14:45 ECG was reviewed by the Attending Physician. rn Vital Signs: 13:17 BP 146 / 94; Pulse 100; Resp 17; Pulse Ox 100% ; Pain 10/10; ll1 16:58 BP 106 / 75; Pulse 83; Resp 18; Temp 98.5; Pulse Ox 94% on R/A; ll1 17:20 BP 106 / 75; Pulse 90; Resp 18; Pulse Ox 96% on R/A; Pain 8/10; ll1 MDM: 13:13 Patient medically screened. rn 16:39 Differential diagnosis: acute myocardial infarction, acute pericarditis, coronary rn artery disease chest wall pain, costochondritis, esophagitis, gastroesophageal reflux disease (GERD), pleurisy, pneumothorax, Covid, flu, RSV, viral illness, pneumonitis. Data reviewed: vital signs, nurses notes, lab test result(s), EKG, radiologic studies, CT scan, plain films, and as a result, I will discharge patient. Counseling: I had a detailed discussion with the patient and/or guardian regarding: the historical points, exam findings, and any diagnostic results supporting the discharge/admit diagnosis, lab results, radiology results, the need for outpatient follow up, to return to the emergency department if symptoms worsen or persist or if there are any questions or concerns that arise at home. Special discussion: Based on the patient's history, exam, and Dx evaluation, there is no indication for emergent intervention or inpatient Tx. It is understood by the patient/guardian that if the Sx's persist or worsen they need to return immediately for re-evaluation. I discussed with the patient/guardian in detail that at this point there is no indication for admission to the hospital. It is understood, however, that if the symptoms persist or worsen the patient needs to return immediately for re-evaluation. ED course: No acute findings in blood, swabs, CT chest. Patient feels much improved. Most likely is chronic hypersensitivity pneumonitis may be made worse with breathing treatments as thought by his wash tank tender. Will put on steroids, prednisone 60 mg a day for 5 days and patient will be in contact with his wash tank tender. Return precautions given and understood.. 11/07 13:27 Order name: BMP 11/07 13:27 Order name: Blood Culture Adult (2) 11/07 13:27 Order name: CBC with Diff 11/07 13:27 Order name: NT PRO-BNP; Complete Time: 14:42 11/07 13:27 Order name: PT-INR; Complete Time: 14:26 11/07 13:27 Order name: Ptt, Activated; Complete Time: 14:26 11/07 13:27 Order name: Troponin (emerg Dept Use Only); Complete Time: 14:42 11/07 13:27 Order name: Flu; Complete Time: 16:06 11/07 13:27 Order name: RSV; Complete Time: 16:06 11/07 13:28 Order name: Basic Metabolic Panel; Complete Time: 14:42 EDMD 11/07 13:28 Order name: Blood Culture [facility] 11/07 13:28 Order name: CBC with Automated Diff; Complete Time: 14:26 EDMD 11/07 16:17 Order name: SARS-COV-2 RT PCR; Complete Time: 16:30 EDMD 11/07 13:16 Order name: EKG; Complete Time: 13:16 11/07 13:16 Order name: EKG - Nurse/Tech; Complete Time: 13:16 11/07 13:27 Order name: IV Start; Complete Time: 13:33 rn 11/07 13:27 Order name: CT Chest For PE Angio; Complete Time: 14: rn 11/07 13:27 Order name: XRAY CXR (1 view); Complete Time: 14: rn 11/07 13:27 Order name: Cardiac monitoring; Complete Time: 13: rn 11/07 13:27 Order name: Labs collected and sent; Complete Time: 13: rn 11/07 13:27 Order name: O2 Per Protocol; Complete Time: : rn 11/07 13:27 Order name: O2 Sat Monitoring; Complete Time: 13:33 rn EC:45 Rate is 104 beats/min. Rhythm is regular. QRS [place] is Normal. [place] interval is normal. QT rn interval is normal. No Q waves. T waves are Normal. No ST changes noted. Clinical impression: Sinus tachycardia. Interpreted by me. Reviewed by me. Administered Medications: 14:27 Drug: morphine 4 mg Route: IVP; Site: right forearm; ll1 17:25 Follow up: Response: No adverse reaction; Pain is decreased; RASS: Alert and Calm (0) ll1 14:27 Drug: Zofran (Ondansetron) 4 mg Route: IVP; Site: right forearm; ll1 17:25 Follow up: Response: No adverse reaction; RASS: Alert and Calm (0) ll1 14:27 Drug: Decadron - Dexamethasone 10 mg Route: IVP; Site: right forearm; ll1 17:24 Follow up: Response: No adverse reaction; RASS: Alert and Calm (0) ll1 16:58 Drug: Ketorolac 15 mg Route: IVP; Site: right antecubital; ll1 17:24 Follow up: Response: No adverse reaction; Pain is unchanged, physician notified; RASS: ll1 Alert and Calm (0) Disposition Summary: 11/07/20 16:41 Discharge Ordered Location: Home rn Problem: new rn Symptoms: have improved rn Condition: Stable rn Diagnosis - Chest pain, unspecified rn - Idiopathic non-specific interstitial pneumonitis rn Followup: rn - With: Private Physician - When: 5 - 6 days - Reason: Recheck today's complaints, Re-evaluation by your physician Discharge Instructions: - Discharge Summary Sheet rn - Nonspecific Chest Pain, Adult rn - Pleurisy rn Forms: - Medication Reconciliation Form rn - Thank You Letter rn - Antibiotic fingernail technician - Prescription Opioid Use rn Prescriptions: - Prednisone 20 mg Oral Tablet - take 3 tablets by ORAL route once daily for 5 days; 15 tablet; Refills: 0, rn Product Selection Permitted Signatures: Dispatcher [employer] Dipika Mccann, RN Carlos Hernandez MD MD rn Lewis, CALDERON Mckeon RN ll1 Corrections: (The following items were deleted from the chart) 15:15 13:28 CORONAVIRUS+MR.LAB.BRZ ordered. EDMS EDMS
--- NOTE | 2020-11-07 16:41 | ER ---
Nurse's Notes [facility] Name: Kane Sanchez Age: 60 yrs Sex: Male : 1960 Arrival Date: 11/07/2020 Time: 13:08 Bed 26 Private MD: Diagnosis: Chest pain, unspecified;Idiopathic non-specific interstitial pneumonitis Presentation: 11/07 13:17 Chief complaint: Patient states: SOB and cough off/on for 6 weeks. 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 Reports SOB and CP worsening over the past 5 days. States he barely slept due to pain last night. Clear sputum with cough. Coronavirus screen: Client denies travel out of the [place] in the last 14 days. cough unrelated to allergies, difficulty breathing, muscle pain, shortness of breath, Client presents with at least one sign or symptom that may indicate coronavirus-19. Standard/surgical mask placed on the client. Ebola Screen: Patient denies travel to an Ebola-affected area in the 21 days before illness onset. No symptoms or risks identified at this time. Initial Sepsis Screen: Does the patient meet any 2 criteria? HR > 90 bpm. No. Patient's initial sepsis screen is negative. Does the patient have a suspected source of infection? Yes: Productive cough/pneumonia. Risk Assessment: Do you want to hurt yourself or someone else? Patient reports no desire to harm self or others. Onset of symptoms was September 22, 2020. 13:17 Method Of Arrival: Ambulatory [facility] 13:17 Acuity: SOCORRO 3 ll1 Historical: - Allergies: 13:15 Topamax; ll1 - PMHx: 13:15 chronic hypersensitivity pneumonitis; Kidney stone; hiatal hernia; ll1 - PSHx: 13:15 multiple neck SX; lung biopsy 07/09/20; ll1 - Immunization history:: Client reports receiving the 2nd dose of the Covid vaccine, Flu vaccine is up to date. - Social history:: Smoking status: Patient denies any tobacco usage or history of. - Family history:: not pertinent. - Hospitalizations: : No recent hospitalization is reported. Screenin:20 Abuse screen: Denies threats or abuse. Nutritional screening: No deficits noted. ll1 Tuberculosis screening: No symptoms or risk factors identified. Fall Risk IV access (20 points). Ambulatory Aid- Crutches/Cane/Walker (15 pts). Gait- Weak (10 pts.). Total Cardenas Fall Scale indicates High Risk Score (45 or more points). Fall prevention measures have been instituted. Side Rails Up X 2 Frequent Obs/Assessments Occuring As available patient and family educated on Fall Prevention Program and Strategies. Assessment: 13:20 General: Appears uncomfortable, Behavior is cooperative, appropriate for age, restless. ll1 Pain: Complains of pain in right breast Pain currently is 10 out of 10 on a pain scale. Quality of pain is described as aching, crampy, Aggravated by cough/deep breathing. Neuro: No deficits noted. Cardiovascular: Reports chest pain, shortness of breath, Heart tones S1 S2 Capillary refill < 3 seconds Clubbing of nail beds is absent JVD Patient's skin is warm and dry. Pulses are all present. Rhythm is regular. Respiratory: Reports shortness of breath cough that is productive, pain with cough Breath sounds are clear bilaterally. Onset: The symptoms/episode began/occurred off/on for 6 weeks, the patient has mild shortness of breath. Respiratory: Airway is patent Trachea midline Respiratory effort is even, unlabored, Respiratory pattern is regular, symmetrical. GI: Abdomen is flat, Bowel sounds present X 4 quads. Reports nausea. 14:20 Reassessment: No changes from previously documented assessment. Patient and/or family ll1 updated on plan of care and expected duration. Pain level reassessed. Patient is alert, oriented x 3, equal unlabored respirations, skin warm/dry/pink. 15:20 Reassessment: No changes from previously documented assessment. Patient and/or family ll1 updated on plan of care and expected duration. Pain level reassessed. 16:20 Reassessment: No changes from previously documented assessment. Patient and/or family ll1 updated on plan of care and expected duration. Pain level reassessed. 17:20 Reassessment: No changes from previously documented assessment. Patient and/or family ll1 updated on plan of care and expected duration. Pain level reassessed. Patient is alert, oriented x 3, equal unlabored respirations, skin warm/dry/pink. Vital Signs: 13:17 BP 146 / 94; Pulse 100; Resp 17; Pulse Ox 100% ; Pain 10/10; ll1 16:58 BP 106 / 75; Pulse 83; Resp 18; Temp 98.5; Pulse Ox 94% on R/A; ll1 17:20 BP 106 / 75; Pulse 90; Resp 18; Pulse Ox 96% on R/A; Pain 8/10; ll1 ED Course: 13:08 Patient arrived in ED. mr 13:10 Mike Irizarry, RN is Primary Nurse. ll1 13:10 Arm band placed on Patient placed in an exam room, on a stretcher. ll1 13:13 Carlos Pinto MD is Attending Physician. rn 13:15 EKG done, by ED staff, reviewed by Carlos Pinto MD. sv 13:16 Patient has correct armband on for positive identification. Bed in low position. Call sv light in reach. Adult w/ patient. potline monitor on. Pulse ox on. NIBP on. Door closed. Head of bed elevated. 13:20 Triage completed. ll1 14:04 XRAY CXR (1 view) In Process Unspecified. EDMS 14:10 CT Chest For PE Angio In Process Unspecified. EDMS 17:20 No provider procedures requiring assistance completed. IV discontinued, intact, ll1 bleeding controlled, No redness/swelling at site. Pressure dressing applied. Administered Medications: 14:27 Drug: morphine 4 mg Route: IVP; Site: right forearm; ll1 17:25 Follow up: Response: No adverse reaction; Pain is decreased; RASS: Alert and Calm (0) ll1 14:27 Drug: Zofran (Ondansetron) 4 mg Route: IVP; Site: right forearm; ll1 17:25 Follow up: Response: No adverse reaction; RASS: Alert and Calm (0) ll1 14:27 Drug: Decadron - Dexamethasone 10 mg Route: IVP; Site: right forearm; ll1 17:24 Follow up: Response: No adverse reaction; RASS: Alert and Calm (0) ll1 16:58 Drug: Ketorolac 15 mg Route: IVP; Site: right antecubital; ll1 17:24 Follow up: Response: No adverse reaction; Pain is unchanged, physician notified; RASS: ll1 Alert and Calm (0) Outcome: 16:41 Discharge ordered by MD. rn 17:24 Discharged to home ambulatory. ll1 17:24 Condition: stable 17:24 Discharge instructions given to patient, family, Instructed on discharge instructions, follow up and referral plans. medication usage, Demonstrated understanding of instructions, follow-up care, medications, Prescriptions given X 1. 17:25 Patient left the ED. ll1 Signatures: Dispatcher [employer] EDDipika Mills, Mile Lala RN PintoCarlos MD MD rn Lewis, Lynsay, RN RN ll1
[2020-11-07 17:32] VITALS: BP 106/75; TEMP 98.5
[2020-11-07 17:35] VITALS: O2SAT 96
== END 2020-11-07 17:25 | disposition home or self-care (01) ==
LOC: ER 13:02
DX: J84.113 Idiopathic non-specific interstitial pneumonitis (principal); Z20.822 Contact with and (suspected) exposure to COVID-19; Z88.8 Allergy status to other drugs, medicaments and biological substances
CPT/HCPCS: 93005; 87040 ×2; 85025; 80048; 36415; 85610; 82565; 85730; 84484; 83880; 87807; 87804 ×2; 71275; 71045; 96375; 96374; 99284; U0003; Q9967; J1100; J2405